=== PATIENT | male | born 1965 | race Caucasian/White ===

== ENCOUNTER 2020-01-21 09:44 | Outpatient (NON) | payer OTHER, SELFPAY ==
[2020-01-21 23:56] LABS: SARS-CoV-2 RNA PCR Positive
== END 2020-01-21 09:45 ==
LOC: ANHCOVIDDT 09:46
PROVIDERS: PCP Internal Medicine; Visit Provider Clinical Nurse Specialist
DX: U07.1 COVID-19 (principal)
CPT/HCPCS: 87635; C9803; U0003

== ENCOUNTER 2023-06-25 15:34 | Outpatient (CLI) | payer OTHER, SELFPAY ==
[2023-06-25 19:10] LABS: Basophils Percent Auto 0.8 % (0.2-1.2); Eosinophils Absolute Auto 0.1 K/mm3 (0-0.3); Eosinophils Percent Auto 1.5 % (0-4.4); Hematocrit 45.7 % (42.0-52.0); Hemoglobin 14.9 g/dL (14.0-18.0); Immature Granulocyte Absolute 0.01 K/mm3 (0.00-0.031); Immature Granulocyte Percent A 0.2 % (0-0.5); Lymphocytes Absolute Auto 1.78 K/mm3 (0.9-3.2); Lymphocytes Percent Auto 33.7 % (18.3-44.2); Mean Corpuscular HGB Conc 32.6 g/dl (32-36); Mean Corpuscular Hemoglobin 32.7 pg (26-34); Mean Corpuscular Volume 100.2 fl (80-100); Mean Platelet Volume 10.7 fl (7.4-10.4); Monocytes Absolute Auto 0.6 K/mm3 (0.1-0.6); Monocytes Percent Auto 11.6 % (2.6-8.5); Neutrophils Absolute Auto 2.8 K/mm3 (1.3-6.7); Neutrophils Percent Auto 52.2 % (45.5-73.1); Platelet Count Result 171 k/mm3 (150-375); Red Blood Count 4.56 M/mm3 (4.6-6.20); Red Cell Distribution Width 13.2 % (11.5-14.5); White Blood Count 5.3 K/mm3 (4.5-10.0)
[2023-06-25 19:59] LABS: Alanine Aminotransferase 28 U/L (6-50); Albumin Level 4.4 g/dL (3.5-5.1); Alkaline Phosphatase 65 U/L (38-126); Anion Gap 4 mmol/L (8-16); Aspartate Amino Transferase 71 U/L (17-59); Bilirubin,Total 0.7 mg/dL (0.2-1.3); Blood Urea Nitrogen 21 mg/dL (9-20); Calcium 9.4 mg/dL (8.4-10.2); Carbon Dioxide 32 mmol/L (22-30); Chloride 104 mmol/L (98-107); Cholesterol 182 mg/dL (0-200); Estimated Glomerular Filt Rate > 60; Glucose 90 mg/dL (65-110); HDL Direct 57 mg/dL; Potassium 4.3 mmol/L (3.4-5.0); Sodium 140 mmol/L (137-145); Triglycerides 91 mg/dL (<150)
[2023-06-25 20:10] LABS: LDL Cholesterol Direct 89 mg/dL
[2023-06-25 20:32] LABS: Prostate Specific Antigen 2.9 ng/mL (< OR = 4.0)
[2023-06-25 22:46] LABS: Appearance Urine Clear (Clear); Bilirubin Urine Negative (Negative); Blood Urine Negative (Negative); Color Urine Yellow (Yellow); Glucose Urine UA Negative (Negative); Ketones Urine Negative (Negative); Leukocyte Esterase Ur Trace LEU/UL (Negative); Nitrate Urine Negative (Negative); Protein Urine Negative (Negative); Specific Grav Ur 1.025 (1.001-1.035); Urobilinogen Urine 0.2 mg/dL (<2.0)
[2023-06-25 22:49] LABS: Bacteria Urine None Seen /hpf; RBC Urine 0-2 /hpf (0-2); Squamous Epithelial Cell Urine None Seen /hpf (Few); WBC Urine 0-5 /hpf (0-3)
[2023-06-25 22:57] LABS: Add Urine Microscopic? YES
[2023-06-28 20:24] LABS: Apolipoprotein B 75 mg/dL (<90)
== END 2023-06-25 15:35 | disposition home or self-care (01) ==
LOC: ANHGOSHLAB 15:37
PROVIDERS: PCP Internal Medicine; Visit Provider Internal Medicine
DX: R13.10 Dysphagia, unspecified (principal); Z87.448 Personal history of other diseases of urinary system; Z82.49 Family history of ischemic heart disease and other diseases of the circulatory system; Z12.5 Encounter for screening for malignant neoplasm of prostate; Z13.29 Encounter for screening for other suspected endocrine disorder; Z13.0 Encounter for screening for diseases of the blood and blood-forming organs and certain disorders involving the immune mechanism; Z13.228 Encounter for screening for other metabolic disorders
CPT/HCPCS: 36415; 80053; 80061; 81001; 81003; 82172; 84153; 84443; 85025; G0103

== ENCOUNTER 2023-07-10 09:09 | Outpatient (CLI) | payer OTHER, SELFPAY ==
--- NOTE | 2023-07-18 17:40 | WPDHOMESLEEP ---
Sleep Study - Home Unattended Date of Study: 07/10/23 Ordering Provider: Faisal Lamar DO Interpreting Provider: Nahomi Rehman DO Home Sleep Study Type: Watch PAT Height: 1.88 m Weight: 92.986 kg Body Mass Index: 26.3 Neck Circumference (inches): 15 [place]: 11 Reason for Sleep Study Unrefreshing sleep, snoring Sleep History The patient is a 57-year-old male that had a sleep study ordered by his primary care physician for evaluation of sleep apnea. He rarely awakens farm sleep short of breath. He occasionally awakens at night with heartburn, belching or cough. He frequently snores and is frequently loud enough that others complain. He occasionally has trouble sleeping when he has a cold. He denies waking up gasping for air throughout the night. He frequently has breathing problems at night observed by himself or others. He frequently sweats excessively at night. He occasionally has heart palpitations or irregular heartbeats during the night. He occasionally falls asleep during the day but rarely falls asleep while driving. He denies sleep paralysis, cataplexy and hypnagogic / hypnopompic hallucinations. He occasionally has trouble at school or work due to sleepiness. He denies feeling afraid of going to sleep. He occasionally has nightmares. He occasionally remembers his dreams. He occasionally has thoughts racing through his mind. He occasionally feels sad, depressed and anxious. He frequently has muscular tension. He occasionally notices parts of his body jerk. He occasionally kicks during the night. He occasionally has crawling and aching feelings in his legs and occasionally has leg pain during the night. He occasionally grinds his teeth during sleep and occasionally awakens with morning jaw pain. He is frequently bothered by pain during the day and occasionally awakened by pain during the night. He frequently wakes up feeling stiff in the morning. He frequently wakes up with sore or achy muscles. He frequently wakes up with pain in the neck, spine and other joints. He goes to bed at 10:00 p.m. on weekdays and at 11:00 p.m. on the weekends. It takes him 20-60 minutes to fall asleep. He wakes up 5 times throughout the night to urinate. The amount of time it takes for him to fall back asleep is variable. He wakes up at 7:30 a.m. on weekdays and at 10:30 a.m. on the weekends. He typically gets 6 hours of sleep per night but will stay in bed for 8-9 hours total. He will stay in bed for 1 hour after waking up in the morning. He currently lives with his . He denies consuming any caffeinated beverages within 2 hours of bedtime. He denies engaging in physical exercise before bedtime. He will watch television before falling asleep. He denies taking naps in afternoon or the evening. He consumes 3 caffeinated beverages per day. He will consume 3-4 alcoholic beverages about 2-3 days per week. He denies recreational drug use. [facility] Past Medical History Medical History Arthritis of both knees Arthritis of right hip Bone spur GERD (gastroesophageal reflux disease) Surgical History Surgical History History of bilateral hip replacements Family History Family History Mother Diabetes mellitus Family history of lung cancer Breast cancer Father Hypertension Social History Social History Smoking status: Never smoker Second hand tobacco smoke exposure: No Alcohol intake: current Alcohol use details: couple times a week Substance use: never Do You Feel Safe in your Home?: Yes Lack of Transportation: No Lack of Food: Never True Current Housing: I Have Housing Concerned About Future Housing: No Difficulty Paying Gas/Electric Bills: No Difficulty Paying
[2023-07-18 17:41] VITALS: BMI 26.3
== END 2023-07-11 07:30 | disposition home or self-care (01) ==
LOC: ANHCSM 09:10
PROVIDERS: PCP Internal Medicine; Visit Provider Internal Medicine
DX: G47.33 Obstructive sleep apnea (adult) (pediatric) (principal); G47.19 Other hypersomnia
CPT/HCPCS: 95800

== ENCOUNTER 2023-11-02 13:27 | Outpatient (CLI) | payer OTHER, SELFPAY ==
[2023-11-02 18:34] LABS: Alanine Aminotransferase 31 U/L (6-50); Albumin Level 4.3 g/dL (3.5-5.1); Alkaline Phosphatase 62 U/L (38-126); Aspartate Amino Transferase 42 U/L (17-59); Bilirubin,Total 0.7 mg/dL (0.2-1.3)
== END 2023-11-02 13:28 | disposition home or self-care (01) ==
LOC: ANHGOSHLAB 13:28
PROVIDERS: PCP Internal Medicine; Visit Provider Internal Medicine
DX: R74.01 Elevation of levels of liver transaminase levels (principal)
CPT/HCPCS: 36415; 80076

== ENCOUNTER 2024-07-15 13:55 | Outpatient (CLI) | payer OTHER, SELFPAY ==
--- OUTSIDE RECORDS SUMMARY | 2024-07-15 15:00 | XMS_ITS | Clinical Summary ---
Author Organization [facility] Address [address] [place] [address] Phone Care Team Providers Care Time Checker Name Role Phone Faisal Lamarian Primary Care Provider Allergies No known active allergies Medications GLUCOSAMINE HCL/CHONDR SQUIRES A NA (OSTEO BI-FLEX ORAL) Take by mouth daily. Active multivitamin (DAILY-TRACY) tablet Take 1 Tablet by mouth daily. Active Active Problems Problem Noted Date Diagnosed Date S/P colonoscopy with polypectomy 02/21/2016 Overview (02/21/2016): 02/21/16 Dysphagia 02/12/2016 Family History Medical History Relation Name Comments Healthy Father Healthy Mother Healthy Other Colon Cancer Neg Hx Relation Name Status Comments Father Mother Other Social History Tobacco Use Types Packs/Day Years Used Date Smoking Tobacco: Never Smokeless Tobacco: Never Alcohol Use Standard Drinks/Week Comments Yes 0 (1 standard drink = 0.6 oz pur e alcohol) Sex and Gender Information Value Date Recorded Sex Assigned at Not on file Legal Sex Male 2:03 PM CDT Gender Identity Not on file Sexual Orientation Not on file Last Filed Vital Signs Vital Sign Reading Time Taken Comments Blood Pressure 120/85 02/28/2021 12:43 PM AUDIO/VISUAL OPERATOR Pulse 62 02/28/2021 11:39 AM AUDIO/VISUAL OPERATOR Temperature 36.5 C (97.7 F) 02/28/2021 12:33 PM AUDIO/VISUAL OPERATOR Respiratory Rate 20 02/28/2021 12:43 PM AUDIO/VISUAL OPERATOR Oxygen Saturation 99% 02/28/2021 12:43 PM AUDIO/VISUAL OPERATOR Inhaled Oxygen Concentration - - Weight 88 kg (194 lb) 02/28/2021 11:35 AM AUDIO/VISUAL OPERATOR Height 188 cm (6' 2 ) 02/28/2021 11:35 AM AUDIO/VISUAL OPERATOR Body Mass Index 24.91 02/28/2021 11:35 AM AUDIO/VISUAL OPERATOR Plan of Treatment Health Maintenance Due Date Last Done Comments DTAP/TDAP/TD VACCINES (1 - Tdap) 09/07/1983 HEPATITIS B VACCINES (1 of 3 - 19+ 3-dose series) 09/07/1983 FIT-DNA Q 3 years 2009 FIT/FOBT Q 1 year 2009 Flex Sig/CT Colonography Q 5 years 2009 ZOSTER VACCINE (1 of 2) 2014 INFLUENZA VACCINE (#1) 2023 COLORECTAL SCREENING 02/28/2031 02/28/2021, 02/28/2021, 02/21/2016 Colorectal Cancer Screening 02/28/2031 PNEUMOCOCCAL VACCINE 0-49 YEARS Aged Out No longer eligible b ased on patient's age to complete this topic Procedures Procedure Name Priority Date/Time Associated Diagnosis Comments COLONOSCOPY REPORT 02/28/2021 12 :36 PM AUDIO/VISUAL OPERATOR from Last 3 Months or Most Recently Relevant to Health Maintenance Results * COLONOSCOPY REPORT (02/28/2021 12:36 PM AUDIO/VISUAL OPERATOR) Narrative Procedure Note Raulito Rodriguez MD - 02/28/2021 12:36 PM CST [facility] Endoscopy Patient Name: Srinivas Osborn Procedure Date: 02/28/2021 Date of : 1965 Age: 55 Attending MD: Raulito Rodriguez MD Procedure: Colonoscopy Indications: Surveillance: Personal history of two small adenomatous polyps and one small hyperplastic polyp on last colonoscopy 5 years ago Providers: Raulito Rodriguez MD Referring MD: Faisal Lamar Medicines: Monitored Anesthesia Care Procedure: Informed consent was obtained for the procedure, including moderate sedation after risks were discussed. Based on the pre-procedure assessment, including review of the patient's medical history, medications, allergies, and review of systems, the patient was deemed to be an appropriate candidate for sedation. A timeout was performed. Continuous ECG monitoring, pulse oximetry, blood pressure monitoring, and direct observation were performed. The Colonoscope was introduced through the anus and advanced to the cecum, identified by appendiceal orifice and ileocecal valve. The quality of the bowel preparation was excellent. Estimated Blood Loss: Estimated blood loss: none. Findings: Internal hemorrhoids were found during retroflexion and during perianal exam. The hemorrhoids were mild/moderate. The exam was otherwise normal throughout the examined colon. Complications: No immediate complications. Impression: - Internal hemorrhoids. - No specimens collected. Recommendation: - Repeat colonoscopy in 10 years for surveillance. - See hemorrhoid handout. Raulito Rodriguez MD 02/28/2021 12:36:00 PM This report has been signed electronically. Number of Addenda: 0 Procedure Date: 02/28/2021 12:02:[address] [place] [address] Raulito Rodriguez MD GI PROCEDURE ORDERABLES Final Result from Last 3 Months or Most Recently Relevant to Health Maintenance Insurance Advance Directives For more information, please contact: [phone] * Full Code (Latest Code Status on File) Date Activated Date Inactivated Comments 02/28/2021 11:36 AM 02/28/2021 3:16 PM * Full Code Date Activated Date Inactivated Comments 02/21/2016 11:06 AM 02/21/2016 3:56 PM Care Teams Time Checker Relationship Specialty Start Date End Date Faisal Lamar DO [address] [address] PCP - General Internal Medicine 01/12/21
--- OUTSIDE RECORDS SUMMARY | 2024-07-15 15:00 | XMS_ITS | Referral Summary ---
Author Organization [facility] Address [address] [place] [address] Care Team Providers Care Gallery Or Museum Technician Name Role Phone Faisal Lamar DO Primary Care Provider [phone] Allergies No known active allergies Medications celecoxib (CeleBREX) 200 mg capsuleIndicatio ns:Osteoarthriti s,Postoperative Acute Pain TAKE 2 PILLS WITH BREAKFAST THE DAY BEFORE SX. TAKE 1 PILL BID AFTER DISCHARGE. 10 capsule 8 Active HYDROcodone-acet aminophen (NORCO) 10-325 mg per tabletIndication s:Pain Take 1 tablet by mouth every 4 (four) hours as needed for pain for up to 70 doses. 70 tablet 8 Active HYDROcodone-acet aminophen (NORCO) 5-325 mg per tabletIndication s:Pain Take 1 tablet by mouth every 4 (four) hours as needed for pain. 70 tablet 8 Active warfarin (COUMADIN) 2 mg tabletIndication s:VTE Prophylaxis Following Ortho Surgery TAKE 3 TAB =6 MG every day at 5:00pm 90 tablet 1 8 Active hydrOXYzine (VISTARIL) 25 mg capsule Take 1 capsule (25 mg total) by mouth every 4 (four) hours as needed for itching. 30 capsule 1 8 Active senna-docusate (PERICOLACE) 8.6-50 mgIndications:co nstipation Take 2 tablets by mouth 2 (two) times a day. 60 tablet 1 09/25/201 8 Active Active Problems Problem Noted Date Diagnosed Date GERD (gastroesophageal reflux disease) 8 Anemia 12/24/2017 Primary osteoarthritis of left hip 11/20/2017 Overview (11/20/2017): Added automatically from request for surgery [id number] Primary osteoarthritis of right hip 09/24/2017 S/P colonoscopy with polypectomy 02/21/2016 Overview (01/08/2018): Overview: 02/21/16 Dysphagia 02/12/2016 Social History Tobacco Use Types Packs/Day Years Used Date Smoking Tobacco: Never Smokeless Tobacco: Never Alcohol Use Standard Drinks/Week Comments Yes 3 (1 standard drink = 0.6 oz pur e alcohol) variable social ETOH Sex and Gender Information Value Date Recorded Sex Assigned at Not on file Legal Sex Male 6:56 PM IMPORT CLERK Gender Identity Not on file Sexual Orientation Not on file Last Filed Vital Signs Vital Sign Reading Time Taken Comments Blood Pressure 165/90 03/10/2022 10:48 AM IMPORT CLERK Pulse 62 03/10/2022 10:48 AM IMPORT CLERK Temperature 36.4 C (97.5 F) 03/10/2022 10:48 AM IMPORT CLERK Respiratory Rate 16 03/10/2022 10:48 AM IMPORT CLERK Oxygen Saturation 99% 03/10/2022 10:48 AM IMPORT CLERK Inhaled Oxygen Concentration - - Weight 93.9 kg (207 lb) 03/10/2022 10:48 AM IMPORT CLERK Height 188 cm (6' 2 ) 03/10/2022 10:48 AM IMPORT CLERK Body Mass Index 26.58 03/10/2022 10:48 AM IMPORT CLERK Plan of Treatment Not on file Medical Devices Implanted Type Area Button Sewing Machine Operator Device Identifier Shelf Expiration Date Model / Serial / Lot [employer] [id number] Continuum 56mm 12 Scallop Cluster Hole Snap Fit Groove Integrate - Sna - [id number] Implanted:Qty: 1 on 09/24/2017 by Vivek Martin MD at [facility] Other - see comments Right: Hip [employer] [id number] 07/31/2027 [id number] / NA / [id number] Description:56 mm O.D. Size KK trabecular metal shell [employer] [id number] 56mm 32mm Hip Kk Neutral Liner Acetabular Longevity Continuum - Sna - [id number] Implanted:Qty: 1 on 09/24/2017 by Vivek Martin MD at [facility] Other - see comments Right: Hip [employer] [id number] 10/30/2020 [id number] / NA / [id number] Description:Liner [employer] [id number] Trilogy 6.5mm 35mm Self Tap Screw Bone - Sna - [id number] Implanted:Qty: 1 on 09/24/2017 by Vivek Martin MD at [facility] Screw Right: Hip [employer] [id number] 03/01/2027 [id number] / NA / [id number] Description:6.5 mm diameter 30 mm Length [employer] [id number] Trilogy 6.5mm 35mm Self Tap Screw Bone - Sna - [id number] Implanted:Qty: 1 on 09/24/2017 by Vivek Martin MD at [facility] Screw Right: Hip [employer] [id number] 03/01/2027 [id number] / NA / [id number] Description:Bone screw 6.5 m m Diameter 35 Length Stem Porous Coated [id number] - [id number] Implanted:Qty: 1 on 09/24/2017 by Vivek Martin MD at [facility] Right: Hip [employer] 08/24/2026 [id number] / / [id number] [employer] [id number] 32mm Modular Hip +3mm Head Femoral Biolox Delta - [id number] Implanted:Qty: 1 on 09/24/2017 by Vivek Martin MD at [facility] Right: Hip [employer] 11/20/[id number] / / [id number] [employer] [id number] 56mm 32mm Hip Kk Neutral Liner Acetabular Longevity Continuum - [id number] Implanted:Qty: 1 on 12/24/2017 by Vivek Martin MD at [facility] Left: Hip [employer] [id number] 07/30/2022 [id number] / / [id number] Stem Porous Coated [id number] - [id number] Implanted:Qty: 1 on 12/24/2017 by Vivek Martin MD at [facility] Left: Hip [employer] 07/24/2027 [id number] / / [id number] [employer] [id number] 32mm Modular Hip -3mm Head Femoral Biolox Delta - [id number] Implanted:Qty: 1 on 12/24/2017 by Vivek Martin MD at [facility] Left: Hip [employer] [id number] 07/17/2027 [id number] / / [id number] [employer] [id number] Continuum 56mm 12 Scallop Cluster Hole Snap Fit Groove Integrate - [id number] Implanted:Qty: 1 on 12/24/2017 by Vivek Martin MD at [facility] Left: Hip [employer] [id number] 09/30/2027 [id number] / / [id number] [employer] [id number] Trilogy 6.5mm 40mm Self Tap Hip Acetabular Cortical Screw Bone - [id number] Implanted:Qty: 1 on 12/24/2017 by Vivek Martin MD at [facility] Left: Hip [employer] [id number] 09/30/2027 [id number] / / [id number] [employer] [id number] Trilogy 6.5mm 30mm Self Tap Acetabular Cortical Screw Bone - [id number] Implanted:Qty: 1 on 12/24/2017 by Vivek Martin MD at [facility] Left: Hip [employer] [id number] 12/01/2027 [id number] / / [id number] Insurance [facility] CHOICE PLUS AETNA COVENTRY HMO/POS AETNA COVENTRY PPO Advance Directives For more information, please contact: [phone] * Full Code (Latest Code Status on File) Date Activated Date Inactivated Comments 12/24/2017 3:35 PM 12/25/2017 1:53 PM * Full Code Date Activated Date Inactivated Comments 09/24/2017 12:01 PM 09/25/2017 4:34 PM Care Teams Gallery Or Museum Technician Relationship Specialty Start Date End Date Faisal Lamar DO PCP - General 08/14/17
--- OUTSIDE RECORDS SUMMARY | 2024-07-15 15:00 | XMS_ITS | Clinical Summary ---
Author Organization [facility] Address [address] [place] [address] Care Team Providers Care General Supervisor Name Role Phone Faisal Lamar DO Primary Care Provider +1- [phone] Allergies No known active allergies Medications celecoxib [...] (11/20/2017): Added automatically from request for surgery [id number] Primary osteoarthritis of right hip 09/24/2017 S/P colonoscopy with polypectomy 02/21/2016 Overview (01/08/2018): Overview: 02/21/16 Dysphagia 02/12/2016 Surgical History Surgery Date Site/Laterality Comments ESOPHAGOGASTRODUODENOSCOPY 04/02/2015 - 04/01/2016 BILATERAL KNEE ARTHROSCOPY 04/02/2008 - 04/01/2009 HAND SURGERY Bilateral Right hand 1980; Left hand 1979 TONSILLECTOMY TOTAL HIP ARTHROPLASTY 08/31/2017 - 09/29/2017 Right ESOPHAGEAL DILATION 04/02/2015 - 04/01/2016 Medical History Medical History Date Comments GERD (gastroesophageal reflux disease) Dysphagia OA (osteoarthritis) of hip Family History Medical History Relation Name Comments Julien-Danlos syndrome Daughter Pulmonary embolism Daughter Heart disease Father Family history of cardiac disorder - (Added by TW Conv) Hypertension Father Family history of hypertension - (Added by TW Conv) Diabetes Maternal Grandfather Family history of diabetes mellitus - Relation: Grandfather (Added by TW Conv) Heart disease Maternal Grandfather Family history of cardiac disorder - Relation: Grandfather (Added by TW Conv) Heart attack Maternal Grandmother Breast cancer Mother Diabetes Mother Family history of diabetes mellitus - (Added by TW Conv) Heart attack Paternal Grandfather Heart attack Paternal Grandmother Relation Name Status Comments Daughter Alive Father Alive Maternal Grandfather (Age 60s) Maternal Grandmother (Age 80) at 61 y/o Mother Alive Paternal Grandfather at 60 y /o Paternal Grandmother (Age 80s) Social History Tobacco Use Types Packs/Day Years Used Date Smoking Tobacco: Never Smokeless Tobacco: Never Alcohol Use Standard Drinks/Week Comments Yes 3 (1 standard drink = 0.6 oz pur e alcohol) variable social ETOH Sex and Gender Information Value Date Recorded Sex Assigned at Not on file Legal Sex Male 6:56 PM SCHOOL STANDARDS COACH Gender Identity Not on file Sexual Orientation Not on file Obstetrics History Last Filed Vital Signs Vital Sign Reading Time Taken Comments Blood Pressure 165/90 03/10/2022 10:48 AM SCHOOL STANDARDS COACH Pulse 62 03/10/2022 10:48 AM SCHOOL STANDARDS COACH Temperature 36.4 C (97.5 F) 03/10/2022 10:48 AM SCHOOL STANDARDS COACH Respiratory Rate 16 03/10/2022 10:48 AM SCHOOL STANDARDS COACH Oxygen Saturation 99% 03/10/2022 10:48 AM SCHOOL STANDARDS COACH Inhaled Oxygen Concentration - - Weight 93.9 kg (207 lb) 03/10/2022 10:48 AM SCHOOL STANDARDS COACH Height 188 cm (6' 2 ) 03/10/2022 10:48 AM SCHOOL STANDARDS COACH Body Mass Index 26.58 03/10/2022 10:48 AM SCHOOL STANDARDS COACH Plan of Treatment Health Maintenance Due Date Last Done Comments Colon Cancer Screening-Colonoscopy 1965 Depression Screening 1965 Hepatitis C Screening 1965 Prostate Cancer Screening-PSA 1964 DTaP/Tdap/Td Vaccine (1 - Tdap) 09/07/1975 Hepatitis B Screening 1982 Regular Well Visit/Exam 18-64 1982 Zoster Vaccine (1 of 2) 2014 Influenza Vaccine (Season Ended) 2024 Pneumococcal vaccine <65 Aged Out No longer eligible based on patient's age to complete this topic Medical Devices Implanted Type Area Brim Raiser Device Identifier Shelf Expiration Date Model / Serial / Lot [employer] [id number] Continuum 56mm 12 Scallop Cluster Hole Snap Fit Groove Integrate - Sna - [id number] Implanted:Qty: 1 on 09/24/2017 by Vivek Martin MD at [facility] Other - see comments Right: Hip [employer] [id number] 07/31/2027 [id number] / NA / [id number] Description:56 mm O.D. Size KK trabecular metal shell [employer] [id number] 56mm 32mm Hip Kk Neutral Liner Acetabular Longevity Continuum - Sna - [id number] Implanted:Qty: 1 on 09/24/2017 by Vivek Martin MD at [facility] Other - see comments Right: Hip [employer] [id number] 10/30/2020 [id number] / NA / [id number] Description:Liner [employer] [id number] Trilogy 6.5mm 35mm Self Tap Screw Bone - Sna - [id number] Implanted:Qty: 1 on 09/24/2017 by Vivek Martin MD at [facility] Screw Right: Hip [employer] [id number] 03/01/2027 [id number] / NA / [id number] Description:6.5 mm diameter 30 mm Length [employer] [id number] Trilogy 6.5mm 35mm Self Tap Screw Bone - Sna - [id number] Implanted:Qty: 1 on 09/24/2017 by Vivek Martin MD at [facility] Screw Right: Hip [employer] [id number] 03/01/2027 [id number] / NA / [id number] Description:Bone screw 6.5 m m Diameter 35 Length Stem Porous Coated [id number] - [id number] Implanted:Qty: 1 on 09/24/2017 by Vivek Martin MD at [facility] Right: Hip [employer] 08/24/2026 [id number] / / [id number] [employer] [id number] 32mm Modular Hip +3mm Head Femoral Biolox Delta - [id number] Implanted:Qty: 1 on 09/24/2017 by Vivek Martin MD at [facility] Right: Hip [employer] 11/20/2026 [id number] / / [id number] [employer] [id number] 56mm 32mm Hip Kk Neutral Liner Acetabular Longevity Continuum - [id number] Implanted:Qty: 1 on 12/24/2017 by Vivek Martin MD at [facility] Left: Hip [employer] [id number] 07/30/2022 [id number] / / [id number] Stem Porous Coated [id number] - [id number] Implanted:Qty: 1 on 12/24/2017 by Vivek Martin MD at [facility] Left: Hip [employer] 07/24/2027 [id number] / / [id number] [employer] [id number] 32mm Modular Hip -3mm Head Femoral Biolox Delta - [id number] Implanted:Qty: 1 on 12/24/2017 by Vivek Martin MD at [facility] Left: Hip [employer] [id number] 07/17/2027 [id number] / / [id number] [employer] [id number] Continuum 56mm 12 Scallop Cluster Hole Snap Fit Groove Integrate - [id number] Implanted:Qty: 1 on 12/24/2017 by Vivek Martin MD at [facility] Left: Hip [employer] [id number] 09/30/2027 [id number] / / [id number] [employer] [id number] Trilogy 6.5mm 40mm Self Tap Hip Acetabular Cortical Screw Bone - [id number] Implanted:Qty: 1 on 12/24/2017 by Vivek Martin MD at [facility] Left: Hip [employer] [id number] 09/30/2027 [id number] / / [id number] [employer] [id number] Trilogy 6.5mm 30mm Self Tap Acetabular Cortical Screw Bone - [id number] Implanted:Qty: 1 on 12/24/2017 by Vivek Martin MD at [facility] Left: Hip [employer] [id number] 12/01/2027 [id number] / / [id number] Insurance [facility] CHOICE PLUS AETNA COVENTRY HMO/POS AETNA COVENTRY PPO Member Subscriber Plan / Payer (Ef fective 2021-Present) Name:Srinivas Ambrose Relation to Subscriber:Self Name:SRINIVAS AMBROSE Payer ID:[id number] (NAIC) Type:AETNA HMO/PPO Address: [place] [id number] Advance Directives For more information, please contact: [phone] * Full Code (Latest Code Status on File) Date Activated Date Inactivated Comments 12/24/2017 3:35 PM 12/25/2017 1:53 PM * Full Code Date Activated Date Inactivated Comments 09/24/2017 12:01 PM 09/25/2017 4:34 PM Care Teams General Supervisor Relationship Specialty Start Date End Date Faisal Lamar DO PCP - General 08/14/17
--- OUTSIDE RECORDS SUMMARY | 2024-07-15 15:00 | XMS_ITS | Clinical Summary ---
Author Organization [facility] Address [address] [place] [id number] Care Team Providers Care Print Binding Worker Name Role Phone Unavailable Primary Care Provider Unavailabl e Social History Tobacco Use Types Packs/Day Years Used Date Smoking Tobacco: Never Assessed Sex and Gender Information Value Date Recorded Sex Assigned at Not on file Legal Sex Male 7:51 PM CDT Gender Identity Not on file Sexual Orientation Not on file Last Filed Vital Signs Vital Sign Reading Time Taken Comments Blood Pressure 150/96 09/23/2012 9:41 AM CDT Pulse 60 09/23/2012 9:41 AM CDT Temperature - - Respiratory Rate - - Oxygen Saturation - - Inhaled Oxygen Concentration - - Weight 102.5 kg (226 lb) 09/23/2012 9:41 AM CDT Height 189.2 cm (6' 2.5 ) 12/07/2011 8:47 AM CDT Body Mass Index 28.63 12/07/2011 8:47 AM CDT Plan of Treatment Health Maintenance Due Date Last Done Comments Colorectal Cancer Screening Colonoscopy (10 Years) 1965 Annual Physical 09/07/1967 Hepatitis C 1982 Zoster Vaccines (1 of 2) 2014 DTaP, Tdap and Td Vaccines ( 2 - Td or Tdap) 12/06/2021 12/07/2011 COVID-19 Vaccine ( - 2023-2 5 season) 2023 Meningococcal B Vaccine Aged Out No l onger eligible based on patient's age to complete this topic Meningococcal Vaccine Aged Out No cornelio reid eligible based on patient's age to complete this topic Pneumococcal Vaccine: Pediat rics (0 to 5 Years) and At-Risk Patients (6 to 49 Years) Aged Out No longer eligi ble based on patient's age to complete this topic RSV Immunizations Under 20 Months Aged Out No longer eligible based on patient's age to complete this topic
--- OUTSIDE RECORDS SUMMARY | 2024-07-15 15:00 | XMS_ITS | Encounter Summary ---
Author Organization [facility] Address [address] [place] [address] Phone Care Team Providers Care Tool Designer Name Role Phone Fasial Lamar DO Primary Care Provider [phone]- [phone] Encounter Details Date Type Department Care Team (Late st Contact Info) Description 10/05/2017 Telephone [facility] Orthopaedic Surgery [address] [place] [id number] Vivek Martin MD [address] [place] [address] Social History Tobacco Use Types Packs/Day Years Used Date Smoking Tobacco: Never Smokeless Tobacco: Never Alcohol Use Standard Drinks/Week Comments Yes 3 (1 standard drink = 0.6 oz pur e alcohol) Sex and Gender Information Value Date Recorded Sex Assigned at Not on file Legal Sex Male 6:56 PM [employer] Gender Identity Not on file Sexual Orientation Not on file documented as of this encounter Plan of Treatment Scheduled Orders Name Type Priority Associated Diagnoses Orde r Schedule Protime-INR Lab Routine Anticoagulation monitoring, special range every sunday and for 8 Occurrences starting 10/05/2017 until 11/05/2017, 5 completed documented as of this encounter Procedures Procedure Name Priority Date/Time Associated Diagnosis Comments PROTIME-INR Routine 01/10/2018 10:02 AM CDT Anticoagulation monitoring, special range PROTIME-INR Routine 01/03/2018 10:56 AM CDT Anticoagulation monitoring, special range PROTIME-INR Routine 10/15/2017 10:12 AM CDT Anticoagulation monitoring, special range PROTIME-INR Routine 10/11/2017 10:45 AM CDT Anticoagulation monitoring, special range PROTIME-INR Routine 10/08/2017 12:10 PM CDT Anticoagulation monitoring, special range documented in this encounter Results * (ABNORMAL) Protime-INR (01/10/2018 10:02 AM CDT) INR 1.7(H) 0.8 - 1.2 [facility] - 01 Comment: Reference interval is for non-anticoagulated patients. Suggested INR therapeutic range for Vitamin K antagonist therapy: Standard Dose (moderate intensity therapeutic range): 2.0 - 3.0 Higher intensity therapeutic range 2.5 - 3.5 PT 17.5(H) 9.1 - 12.0 sec [facility] - 01 Blood specimen (specimen) 01/10/2018 10:02 AM CDT 01/10/2018 Narrative [facility] - 01/11/2018 7:18 AM CDT Performed at: 01 - [address] [id number] Director Hospice Operations: Stephan Choe PhD, Phone: [phone] Anna Liang LAB BLOOD ORDERABLES Final Resul t [facility] - 01 * (ABNORMAL) Protime-INR (01/03/2018 10:56 AM CDT) INR 1.9(H) 0.8 - 1.2 [facility] - 01 Comment: Reference interval is for non-anticoagulated patients. Suggested INR therapeutic range for Vitamin K antagonist therapy: Standard Dose (moderate intensity therapeutic range): 2.0 - 3.0 Higher intensity therapeutic range 2.5 - 3.5 PT 19.7(H) 9.1 - 12.0 sec [facility] - 01 Blood specimen (specimen) 01/03/2018 10:56 AM CDT 01/03/2018 Narrative [facility] - 01/04/2018 7:19 AM CDT Performed at: [address] [place] [id number] Director Hospice Operations: Stephan Choe PhD, Phone: [phone] Anna Liang LAB BLOOD ORDERABLES Final Resul t Performing Organization Address [facility] de Phone Number [facility] - * (ABNORMAL) Protime-INR (10/15/2017 10:12 AM CDT) INR 1.6(H) 0.8 - 1.2 [facility] - Comment: Reference interval is for non-anticoagulated patients. Suggested INR therapeutic range for Vitamin K antagonist therapy: Standard Dose (moderate intensity therapeutic range): 2.0 - 3.0 Higher intensity therapeutic range 2.5 - 3.5 PT 15.9(H) 9.1 - 12.0 sec [facility] - 01 Blood specimen (specimen) 10/15/2017 10:12 AM CDT 10/16/2017 Narrative [facility] - 10/16/2017 8:15 AM CDT Performed at: [address] [place] [id number] Director Hospice Operations: Stephan Choe PhD, Phone: [phone] Anna Liang LAB BLOOD ORDERABLES Final Resul t Performing Organization Address [facility] de Phone Number [facility] - * (ABNORMAL) Protime-INR (10/11/2017 10:45 AM CDT) INR 1.5(H) 0.8 - 1.2 [facility] - Comment: Reference interval is for non-anticoagulated patients. Suggested INR therapeutic range for Vitamin K antagonist therapy: Standard Dose (moderate intensity therapeutic range): 2.0 - 3.0 Higher intensity therapeutic range 2.5 - 3.5 PT 14.8(H) 9.1 - 12.0 sec [facility] - 01 Blood specimen (specimen) 10/11/2017 10:45 AM CDT 10/11/2017 Narrative [facility] - 10/12/2017 7:20 AM CDT Performed at: [address] [place] [id number] Director Hospice Operations: Stephan Choe PhD, Phone: [phone] Anna Liang LAB BLOOD ORDERABLES Final Resul t Performing Organization Address [facility] Co de Phone Number [facility] - * (ABNORMAL) Protime-INR (10/08/2017 12:10 PM CDT) INR 1.4(H) 0.8 - 1.2 [facility] - 01 Comment: Reference interval is for non-anticoagulated patients. Suggested INR therapeutic range for Vitamin K antagonist therapy: Standard Dose (moderate intensity therapeutic range): 2.0 - 3.0 Higher intensity therapeutic range 2.5 - 3.5 PT 13.8(H) 9.1 - 12.0 sec [facility] - 01 Blood specimen (specimen) 10/08/2017 12:10 PM CDT 10/08/2017 Narrative [facility] - 10/09/2017 6:15 AM CDT Performed at: [address] [place] [id number] Director Hospice Operations: Stephan Choe PhD, Phone: [phone] Anna Liang LAB BLOOD ORDERABLES Final Resul t Performing Organization Address [facility] Co de Phone Number [facility] - documented in this encounter Visit Diagnoses Diagnosis Anticoagulation monitoring, special range- Primary Encounter for long-term (current) use of anticoagulants documented in this encounter Additional Health Concerns Infection Onset Date Last Indicated Resolved Time COVID: Suspected 03/10/2022 03/10/2022 03/10/2022 4:23 PM [employer] Influenza, adult 03/10/2022 03/10/2022 03/17/2022 3:05 AM [employer] documented as of this encounter Care Teams Tool Designer Relationship Specialty Start Date End Date Faisal Lamar DO PCP - General 08/14/17 documented as of this encounter
--- OUTSIDE RECORDS SUMMARY | 2024-07-15 15:00 | XMS_ITS | Clinical Summary ---
Author Organization [facility] Address [address] [place] [address] Care Team Providers Care Form Tamper Operator Name Role Phone Unavailable Primary Care Provider Unavailabl e Source Comments [facility],non-owned Affiliates and Associated Physician Practices is amultiple site organization consisting of ambulatory clinics and hospital sitesin [place], [place] and [place]. This disclosure is being madepursuant to the Care Everywhere program and may not contain all information available regarding this patient. Last updated 17.[employer] [facility] Allergies No known active allergies Medications * Be aware that medications may not be up to date on this document. Alwaysverify current medications with the patient. No known medications Social History Tobacco Use Types Packs/Day Years Used Date Smoking Tobacco: Never Smokeless Tobacco: Never Sex and Gender Information Value Date Recorded Sex Assigned at Not on file Legal Sex Male 11:10 AM CDT Gender Identity Not on file Sexual Orientation Not on file Last Filed Vital Signs Vital Sign Reading Time Taken Comments Blood Pressure 116/80 09/24/2018 12:14 PM CDT Pulse 64 09/24/2018 12:14 PM CDT Temperature 36.8 C (98.3 F) 09/24/2018 12:14 PM CDT Respiratory Rate 20 09/24/2018 12:14 PM CDT Oxygen Saturation 96% 09/24/2018 12:14 PM CDT Inhaled Oxygen Concentration - - Weight 102.1 kg (225 lb) 09/24/2018 12:14 PM CDT Height 188 cm (6' 2 ) 09/24/2018 12:14 PM CDT Body Mass Index 28.89 09/24/2018 12:14 PM CDT Plan of Treatment Health Maintenance Due Date Last Done Comments COLOGUARD (AGES 45-75) - COL ON CA SCREENING 1964 COLON MONITORING 1964 COLONOSCOPY - COLON CA SCREENING 1964 CT COLONOGRAPHY - COLON CA SCREENING 1964 Colorectal Cancer Screening 1964 FIT - COLON CA SCREENING 1964 FLEX SIG - COLON CA SCREENING 1964 LIPID TESTING 1964 HIV SCREENING 09/07/1979 HEPATITIS C SCREENING 09/02/1982 DTAP/TDAP/TD VACCINES (1 - Tdap) 09/07/1983 HEPATITIS B VACCINE (1 of 3 - 19+ 3-dose series) 09/07/1983 PNEUMOCOCCAL VACCINE 50+ (1 of 1 - PCV) 2014 ZOSTER VACCINE (1 of 2) 2014 SCREENING FOR DIABETES 09/24/2018 COVID-19 VACCINE (1 - 2023-2 5 season) 2023 DEPRESSION SCREENING 04/02/2024 INFLUENZA VACCINE (Season Ended) 2024 HIB VACCINE Aged Out No longer eligi ble based on patient's age to complete this topic HPV VACCINE Aged Out No longer eligi ble based on patient's age to complete this topic MENINGOCOCCAL (Group B) VACC INE SHARED DECISION-MAKING Aged Out No longer eligibl e based on patient's age to complete this topic MENINGOCOCCAL GROUPS A/C/Y/W VACCINE Aged Out No longer eligible b ased on patient's age to complete this topic PNEUMOCOCCAL VACCINE Aged Out No long er eligible based on patient's age to complete this topic Insurance
[2024-07-15 18:46] LABS: Alanine Aminotransferase 29 U/L (6-50); Albumin Level 4.6 g/dL (3.5-5.1); Alkaline Phosphatase 68 U/L (38-126); Anion Gap 8 mmol/L (4-12); Aspartate Amino Transferase 48 U/L (17-59); Bilirubin,Total 0.6 mg/dL (0.2-1.3); Blood Urea Nitrogen 23 mg/dL (9-20); Calcium 9.3 mg/dL (8.4-10.2); Carbon Dioxide 30 mmol/L (22-30); Chloride 103 mmol/L (98-107); Cholesterol 184 mg/dL (0-200); Estimated Glomerular Filt Rate > 60; Glucose 95 mg/dL (65-110); HDL Direct 61 mg/dL; Potassium 4.2 mmol/L (3.4-5.0); Sodium 141 mmol/L (137-145); Triglycerides 69 mg/dL (<150)
[2024-07-15 18:51] LABS: LDL Cholesterol Direct 86 mg/dL
[2024-07-15 18:54] LABS: Basophils Percent Auto 0.8 % (0.2-1.2); Eosinophils Absolute Auto 0.1 K/mm3 (0-0.3); Eosinophils Percent Auto 2.3 % (0-4.4); Hematocrit 46.5 % (42.0-52.0); Hemoglobin 14.6 g/dL (14.0-18.0); Immature Granulocyte Absolute 0.06 K/mm3 (0.00-0.031); Immature Granulocyte Percent A 1.2 % (0-0.5); Lymphocytes Absolute Auto 1.37 K/mm3 (0.9-3.2); Lymphocytes Percent Auto 26.3 % (18.3-44.2); Mean Corpuscular HGB Conc 31.4 g/dl (32-36); Mean Corpuscular Hemoglobin 31.9 pg (26-34); Mean Corpuscular Volume 101.5 fl (80-100); Mean Platelet Volume 10.5 fl (7.4-10.4); Monocytes Absolute Auto 0.6 K/mm3 (0.1-0.6); Monocytes Percent Auto 11.7 % (2.6-8.5); Neutrophils Percent Auto 57.7 % (45.5-73.1); Platelet Count Result 172 k/mm3 (150-375); Red Blood Count 4.58 M/mm3 (4.6-6.20); Red Cell Distribution Width 13.7 % (11.5-14.5); White Blood Count 5.2 K/mm3 (4.5-10.0)
[2024-07-15 19:09] LABS: Prostate Specific Antigen 2.9 ng/mL (< OR = 4.0); Thyroid Stimulating Hormone 0.496 uIU/mL (0.465-4.680)
[2024-07-19 10:54] LABS: Testosterone Free 78.1 pg/mL (35.0-155.0); Testosterone Total 714 ng/dL (250-1100)
== END 2024-07-15 13:56 | disposition home or self-care (01) ==
LOC: ANHGOSHLAB 13:56
PROVIDERS: PCP Internal Medicine; Visit Provider Clinical Nurse Specialist
DX: R53.83 Other fatigue (principal); Z82.49 Family history of ischemic heart disease and other diseases of the circulatory system; Z13.228 Encounter for screening for other metabolic disorders; Z12.5 Encounter for screening for malignant neoplasm of prostate; Z13.29 Encounter for screening for other suspected endocrine disorder; Z13.0 Encounter for screening for diseases of the blood and blood-forming organs and certain disorders involving the immune mechanism
CPT/HCPCS: 36415; 80053; 80061; 84153; 84402; 84403; 84443; 85025; G0103